=== PATIENT | female | born 1985 | race Caucasian/White ===

== ENCOUNTER 2022-12-26 14:55 | Emergency (ER) | payer OTHER ==
[~2022-12-26] VITALS: Ht 172.7 cm; Wt 65.8 kg
[2022-12-26] MEDS ORDERED: LIDOCAINE HCL/MPF 1% 30 ML VIAL IJ ONE (16:09)
[2022-12-26] MEDS ORDERED: LIDOCAINE HCL/PF 1% 30 ML VIAL TP ONE (16:30)
[2022-12-26] MEDS ORDERED: ACET325T53 PO (17:05)
[2022-12-26 18:23] VITALS: BP 100/62; TEMP 98; O2SAT 100
== END 2022-12-26 18:24 | disposition home or self-care (01) ==
LOC: ER 15:00
DX: S52.512A Displaced fracture of left radial styloid process, initial encounter for closed fracture (principal); Z88.5 Allergy status to narcotic agent; W01.0XXA Fall on same level from slipping, tripping and stumbling without subsequent striking against object, initial encounter; Y93.89 Activity, other specified; Y92.89 Other specified places as the place of occurrence of the external cause; Y99.8 Other external cause status
CPT/HCPCS: 25605; 99284; 73100; 73110; J3490 ×2